=== PATIENT | female | born 1990 ===

== ENCOUNTER 2018-08-18 07:12 | Day surgery (SDC) | payer MEDICARE, MEDICAID ==
[2018-08-18 08:43] LABS: CALCIUM 8.6 mg/dl (8.6-10.4)
[2018-08-18] MEDS ORDERED: cefTRIAXone 1 gm 1 GM/100 ML BAG IVPB ONE (11:25)
[2018-08-18] MEDS ORDERED: Iohexol 240 (50 ml) ONE (11:25)
[2018-08-18] MEDS ORDERED: Midazolam 2 MG/2 ML VIAL ONE (11:42)
[2018-08-18] MEDS ORDERED: Propofol 10 mg/ml Inj (20 ML) ONE (11:43)
[2018-08-18] MEDS ORDERED: HYDROmorphone 0.5 mg/0.5 ml ISec IVP PRN (12:20)
--- NOTE | 2018-08-18 12:24 | PCM.SURG1 ---
Surgeon's Initial Post Op Note - Surgeon's Notes Surgeon: Katalina Jama Candle Cutter: none Type of Anesthesia: IV Sedation Pre-Operative Diagnosis: Urolithiasis Operative Findings: same Post-Operative Diagnosis: same Operation Performed: Cysto. Bilat RTG pyelogram. Insertion of R ureteral stent. EUA Specimen/Specimens Removed: urine Estimated Blood Loss: EBL {In ML}: 0 Blood Products Given: N/A Date of Surgery/Procedure: 08/18/18 Time of Surgery/Procedure: 12:24
[2018-08-18 13:03] VITALS: RESP 18
[2018-08-18 13:21] VITALS: O2SAT 96
[2018-08-18 14:44] VITALS: BP 149/80; PULSE 92; TEMP 97.8
--- NOTE | 2018-08-18 18:50 | RAD ---
Date of service: 08/18/2018 PROCEDURE: Intraoperative Fluoroscopy. HISTORY: UROLITHIASIS FINDINGS: Fluoroscopic assistance was provided for bilateral retrograde and stent placement. Please refer to the operative report from Dr. DONG LELAND. Total fluoroscopic time (continuous mode) utilized during the procedure 18.6 (seconds). Dose report: DLP [id number] (mGy/m2)
--- NOTE | 2018-08-19 12:38 | RAD ---
Date of service: 08/18/2018 HISTORY: Urolithiasis COMPARISON: None available. FINDINGS: BOWEL: Normal. No obstruction. No free air. BONES: Normal. OTHER FINDINGS: None. IMPRESSION: No significant findings. No visible calculi identified on the present study.
--- NOTE | 2018-08-21 09:59 | OP ---
PROCEDURE DATE: 08/18/2018 PREOPERATIVE DIAGNOSIS: Urolithiasis. POSTOPERATIVE DIAGNOSIS: Urolithiasis. PROCEDURE: Cystoscopy. Bilateral retrograde pyelogram. Insertion of right ureteral stent. OPERATING SURGEON: Olga Jama MD. Procedure was formed under video endoscopic control as well as under fluoroscopic control. The patient was placed in lithotomy position. Sedation was provided by the anesthesiologist. Perioperative antibiotics were administered. A 22-Malagasy cystoscope sheath was introduced with obturator. Urine within the bladder was sent for bacteriologic examination. Urethra and bladder were inspected with 30-degree and 70-degree lenses. FINDINGS: There was no evidence of bladder tumor. There was no bladder stone. There was mild bladder inflammation. There was no bladder diverticulum. The ureteral orifices were normal in position and shape. There was no stone or tumor within the bladder. Occlusive tip retrograde ureteral pyelogram was performed. Iodinated contrast dye was instilled via cone-tip catheter into each ureteral orifice. The ureters and kidneys were viewed sequentially with fluoroscopy. There was no evidence of obstruction within the ureters. There was evidence of mild radiolucencies in the position of calyces in both kidneys. These were consistent with possible stones. There was good drainage noted on the post drainage films. A 0.035-inch guidewire was inserted into right ureteral orifice and passed up to the level of kidney. A 6-Malagasy multilength stent was inserted over the guidewire. Proper stent position was confirmed with fluoroscopy and endoscopy. The stent coiled well within the right renal pelvis as well as within the bladder. The bladder was reinspected with 70-degree lens to confirm the above findings. The bladder was then drained. Cystoscope and sheath removed. Lidocaine jelly were instilled previously. Exam under anesthesia was performed. There was no abnormal pelvic mass fixation or induration. The patient tolerated the procedure without complication. The patient was explained regarding the temporary nature of the stent and its need for subsequent removal following her stone treatment. Olga Jama MD
== END 2018-08-18 13:45 | disposition home or self-care (01) ==
LOC: C.SDS 07:12
PROVIDERS: ATTEND Urology
DX: N20.9 Urinary calculus, unspecified (principal)
CPT/HCPCS: 36415; 52005; 52332; 74022; 80048; 82948; 84702; 87086; C1725; C1758; C1769; J0696; J1170